=== PATIENT | female | born 1955 | race Caucasian/White ===

== ENCOUNTER 2019-03-03 13:08 | Outpatient (CLI) | payer BC ==
[~2019-03-03 13:08] MED LIST: ALPR1TAB2 PO; BUPR300T49 PO; DULO30CA2 PO; QUET400T7 PO; ROSU5TAB PO; TEMA30CA PO
== END 2019-03-03 23:59 | disposition home or self-care (01) ==
LOC: ROC 13:08
PROVIDERS: ATTEND Radiology Radiation Oncology
DX: C50.911 Malignant neoplasm of unspecified site of right female breast (principal)
CPT/HCPCS: 99214; G0463

== ENCOUNTER → 2019-06-07 | Outpatient (CLI) | payer BC | END | disposition home or self-care (01) | LOC: ROC 07:55 | PROVIDERS: ATTEND Radiology Radiation Oncology | DX: C50.111 Malignant neoplasm of central portion of right female breast (principal); Z90.11 Acquired absence of right breast and nipple | CPT/HCPCS: 99212; G0463 ==

== ENCOUNTER 2019-07-13 07:42 | Outpatient (CLI) | payer BC | END 2019-07-13 23:59 | disposition home or self-care (01) | LOC: CFH 07:42 | PROVIDERS: ATTEND Internal Medicine Hematology & Oncology | DX: C50.811 Malignant neoplasm of overlapping sites of right female breast (principal); M85.88 Other specified disorders of bone density and structure, other site | CPT/HCPCS: 77080 ==

== ENCOUNTER → 2020-01-26 | Outpatient (CLI) | payer BC | END | disposition home or self-care (01) | LOC: CFH 14:58 | PROVIDERS: ATTEND Internal Medicine Hematology & Oncology | DX: R92.2 Inconclusive mammogram (principal) | CPT/HCPCS: 76641 ==

== ENCOUNTER → 2020-01-31 | Outpatient (CLI) | payer BC | END | disposition home or self-care (01) | LOC: ROC 08:50 | PROVIDERS: ATTEND Radiology Radiation Oncology | DX: Z08 Encounter for follow-up examination after completed treatment for malignant neoplasm (principal); Z85.3 Personal history of malignant neoplasm of breast | CPT/HCPCS: 99212; G0463 ==